=== PATIENT | male | born 1990 | race Caucasian/White ===

== ENCOUNTER 2016-10-04 22:39 | Inpatient (IN) | payer MEDICAID ==
--- NOTE | ~2016-10-04 | DS ---
Unit #: [id number] #: [id number] Patient: LUIS PATRICIO [id number] [facility] [address] [place] [address] [id number] MR#: [id number] NAME: LUIS PATRICIO ROOM: [facility] Age: 26 Sex: M Admission Date: 10/04/2016 : 1990 Discharge Date: 10/08/2016 Attending Physician: Maria Esther Clifton M.D. Primary Care Physician: Generic Doctor Not In System DISCHARGE SUMMARY IDENTIFYING DATA Mr. Patricio is a 26-year-old single white male, who was transferred to us from Emergency Psychiatric Services at [facility]. DISCHARGE DIAGNOSES Psychiatric: Major depressive disorder, recurrent, moderate, without psychotic features; cannabis abuse, mild. Medical: None. Stressors: Moderate psychosocial stressors. HISTORY OF PRESENT ILLNESS Please see initial psychiatric evaluation for details. PAST PSYCHIATRIC HISTORY Please see initial psychiatric evaluation for details. PAST MEDICAL HISTORY Please see initial psychiatric evaluation for details. HOSPITAL COURSE The [facility] and was oriented to the hospital environment. Routine p.r.n. medications were initiated, and he was started back on his home medications. Celexa 20 mg was started as an antidepressant and he was closely monitored. He was taking the medications regularly and was tolerating them fairly well and was able to show a decent and therapeutic response and was willing to continue treatment on an outpatient basis. DISCHARGE MEDICATIONS Celexa 20 mg a day for depression. DISCHARGE CONDITION Stable. PROGNOSIS Fair. Dictated by... Kristyn March/eliceo TD: 10/09/2016 00:40 Unit #: [id number] #: [id number] Patient: LUIS PATRICIO JOB #: [id number] DISCHARGE SUMMARY X Maria Esther Clifton MD X DISCHARGE SUMMARY
--- NOTE | ~2016-10-04 | HP ---
Unit #: [id number] #: [id number] Patient: LUIS CHAVEZ [id number] [place] [address] [id number] MR#: [id number] NAME: LUIS CHAVEZ ROOM: [facility] Age: 26 Sex: M Admission Date: 10/04/2016 : 1990 Attending Physician: Maria Esther Clifton M.D. Admitting Physician: Maria Esther Clifton M.D. Primary Care Physician: Generic Doctor Not In System HISTORY AND PHYSICAL HISTORY OF PRESENT ILLNESS The patient is a 26-year-old male admitted to [address] [place] [address] on 10/04/2016 for suicidal ideation. PAST MEDICAL HISTORY The patient denies. PAST SURGICAL HISTORY The patient denies. SOCIAL HISTORY The patient is unemployed. He drinks one-half pint of alcohol per day. Smokes one joint per day. FAMILY HISTORY Noncontributory. ALLERGIES No known drug allergies. CURRENT MEDICATIONS The patient is not on any home medications. REVIEW OF SYSTEMS CONSTITUTIONAL: No fever or chills. HEENT: Denies any sore throat, ear pain or runny nose. CARDIOVASCULAR: Denies chest pain, irregular heart rhythm or palpitations. CHEST: Denies shortness of breath or cough. No hemoptysis. GASTROINTESTINAL: Denies nausea, vomiting, diarrhea or chronic constipation. ENDOCRINE: Denies history of increased thirst or urination. No recent significant weight loss or gain. GENITOURINARY: Denies dysuria, frequency, or hematuria. SKIN: Denies any rashes. HEMATOLOGIC: Denies history of increased bleeding or bruising. MUSCULOSKELETAL: Denies any hot, swollen joints. No generalized muscle pain. NEUROLOGIC: Denies problems with vision or speech. No frequent, severe headaches. No numbness, tingling or weakness in any extremities. Denies loss of bladder or bowel control. PHYSICAL EXAMINATION GENERAL: The patient is awake, alert and oriented, in no acute distress. VITAL SIGNS: Temperature 98.0, heart rate 57, respiratory rate 16, blood Unit #: [id number] #: [id number] Patient: LUIS CHAVEZ pressure 98/53, height 5'6". WEIGHT: 130 pounds. SKIN: Warm and dry without rash or lesion. HEENT: Normocephalic. TMs not viewed. Oral and nasal passages clear. Conjunctivae clear. PERRLA. EOMs intact. NECK: Supple without lymphadenopathy or thyromegaly. HEART: Regular rate and rhythm without murmur. LUNGS: Clear. ABDOMEN: Soft, nontender. : Not done. EXTREMITIES: No evidence of cyanosis, clubbing or edema. Moves all without focal deficit. NEUROLOGICAL: Grossly within normal limits. Cranial Nerves: II: Visual bee are intact. III, IV AND : Extraocular movements are intact. Pupils are equal, round and reactive to light. V: Facial sensation is grossly normal. VII: Facial movements and expression are normal. VIII: Auditory acuity grossly intact. IX, X: Uvula is midline. Phonation is normal. XI: Patient shrugs shoulders and turns head normally. XII: Tongue protrudes in the midline. Sensory and Motor Function: Sensory and motor sensation is grossly normal. Motor: moves all extremities well. ASSESSMENT 1. Psychiatric admission. 2. Alcohol abuse. RECOMMENDATION 1. Psychiatric: Per psychiatrist. 2. Medical: No contraindications for participating in facility activities. MEDICAL PROGNOSIS Good. MEDICAL CONDITION Stable. Dictated by... Hilda Cobb TD: 10/06/2016 09:20 JOB #: [id number] HISTORY AND PHYSICAL X JANIA ESTEBAN APRN X HISTORY AND PHYSICAL
--- NOTE | ~2016-10-04 | PA ---
Unit #: [id number] #: [id number] Patient: LUIS PATRICIO [id number] [facility] [address] [place] [address] [id number] MR#: [id number] NAME: LUIS PATRICIO ROOM: P261 Age: 26 Sex: M Admission Date: 10/04/2016 : 1990 Date of Assessment: 10/05/2016 Attending Physician: Maria Esther Clifton M.D. Admitting Physician: Maria Esther Clifton M.D. Primary Care Physician: Generic Doctor Not In System PSYCHIATRIC ASSESSMENT DATE OF SERVICE 10/05/2016. IDENTIFYING DATA Mr. Patricio is a 26-year-old single white male, who was transferred to us from Emergency Psychiatric Services at [facility] where he was brought in by crisis intervention team of the [facility] [employer]. CHIEF COMPLAINT "I'm depressed, I'm not eating, I'm not sleeping." HISTORY OF PRESENT ILLNESS Mr. Patricio is a 26-year-old single white male, who was brought to the hospital by crisis intervention team called by the patient's mother due to concern for the patient's safety, and [facility] report stated that the patient made threats to harm himself and also reported that the patient states that he is depressed and no longer wants to live and reported that he will harm himself and was taken to the Emergency Room at [facility] where he was exhibiting significant depression and anxiety with blunted affect and minimal interaction and reports disturbed sleep and appetite, poor energy level, feelings of hopelessness and helplessness. He reports financial stressors and feeling that no one cares for him and refuses to present with any feature orientation programs and reports that he would not be safe if he went home and states that he wants to and will kill himself, and as such, a recommendation for inpatient level of care was made and the patient was medically cleared and then transferred to us. SUBSTANCE ABUSE HISTORY The patient reports smoking a joint of cannabis a day, but denies any other drug abuse. PAST PSYCHIATRIC HISTORY The patient has had a history of inpatient psychiatric hospitalization at [facility] and has been diagnosed and treated for mood disorder. Review of the medical records indicate that currently he is not active in any treatment program, is not seeing a psychiatrist, and is not taking any psychotropic medications. PAST MEDICAL HISTORY No acute or chronic medical illnesses. Unit #: [id number] #: [id number] Patient: LUIS PATRICIO ALLERGIES No known medication allergies. CURRENT MEDICATIONS None. PERSONAL AND SOCIAL HISTORY A 26-year-old white male, who reports that he is single, unemployed, and lives at home by himself and has poor social support system. MENTAL STATUS EXAMINATION Young white male, who was casually dressed with fair personal hygiene, appears to be in no acute distress or discomfort. He was awake and alert on interaction with intact orientation to time, place, and person. His mood was anxious and depressed with a congruent affect. His speech was slow and goal directed. He reports having suicidal ideation, but denies any homicidal ideations and also denies any auditory or visual hallucinations. His insight and judgment remain significantly impaired. DIAGNOSTIC IMPRESSION Psychiatric: Major depressive disorder, recurrent, moderate, without psychotic features and cannabis abuse, mild. Medical: None. Stressors: Moderate psychosocial stressors. TREATMENT PLAN 1. The patient has presented with a history of mood disorder and substance abuse and has been decompensating. We will recommend inpatient hospitalization for safety and stabilization. We will recommend starting him on antidepressant therapy. 2. Supportive therapy was provided to the patient. 3. Safe, structured, and nourishing environment will be provided. ESTIMATED LENGTH OF STAY 5 to 7 days. ABILITY TO HELP SELF Limited. WILLINGNESS TO HELP SELF The patient appears to be willing to help self. STRENGTHS 1. Communicative. 2. Cooperative. PROBLEMS 1. Chronic dysphoric symptoms. 2. Poor social support system. DISCHARGE CRITERIA This will be contingent upon the patient's ability to show resolution of his depression and anxiety and his ability to stay safe to himself, particularly after discharge from the hospital. Dictated by... Maria Esther Clifton M.D. Unit #: [id number] #: [id number] Patient: LUIS PATRICIO ANGELA/modl TD: 10/05/2016 14:28 JOB #: [id number] PSYCHIATRIC ASSESSMENT X Maria Esther Clifton MD PSYCHIATRIC ASSESSMENT
--- NOTE | ~2016-10-04 | PN ---
Unit #: [id number] #: [id number] Patient: LUIS CHAVEZ [id number] [facility] [address] [place] [address] [id number] MR#: [id number] NAME: LUIS CHAVEZ ROOM: [facility] Age: 26 Sex: M Admission Date: 10/04/2016 : 1990 Attending Physician: Maria Esther Clifton M.D. Admitting Physician: Maria Esther Clifton M.D. Primary Care Physician: Major Doctor Not In System [facility] PROGRESS NOTES DATE OF SERVICE: 10/06/2016 SUBJECTIVE Mr. Briggs is a 26-year-old white male with mood disorder, who was seen today and chart was reviewed and case was discussed with the staff. He has been anxious, withdrawn, and rather seclusive to himself. Meanwhile, he has been cooperative with treatment recommendation and has been taking the medications and tolerating them fairly well with no reported side effects. MENTAL STATUS EXAMINATION Young white male who was casually dressed with a fair personal hygiene and appears to be in no acute distress or discomfort. He was awake and alert on interaction with intact orientation. His mood was anxious with a congruent affect. He denies any suicidal or homicidal ideations. His insight and judgment remain slightly impaired. TREATMENT PLAN 1. We will continue him on his current medications and treatment protocol. We will monitor his response to the medications and make further adjustments as needed. 2. We will continue to follow up. Dictated by... Kristyn March/eliceo TD: 10/07/2016 05:13 JOB #: [id number] [facility] PROGRESS NOTES X Maria Esther Clifton MD PROGRESS NOTE
--- NOTE | ~2016-10-04 | PN ---
Unit #: [id number] #: [id number] Patient: LUIS PATRICIO [id number] [facility] [address] [place] [address] [id number] I MR#: [id number] NAME: LUIS PATRICIO ROOM: [facility] Age: 26 Sex: M Admission Date: 10/04/2016 : 1990 Attending Physician: Maria Esther Clifton M.D. Admitting Physician: Maria Esther Clifton M.D. Primary Care Physician: Generic Doctor Not In System [facility] PROGRESS NOTES DATE OF SERVICE: 10/07/2016 SUBJECTIVE Mr. Patricio is a 26-year-old white male, who was seen today and chart was reviewed and the case was discussed with the staff. He has been doing fairly well and has been showing improvement in depression and anxiety and has been cooperative with the treatment recommendations as he has been taking the medications and tolerating them fairly well. MENTAL STATUS EXAMINATION Young white male, who was casually dressed with fair personal hygiene, appears to be in no acute distress or discomfort. He was awake and alert on interaction with intact orientation. His mood was anxious with a congruent affect. He denies any suicidal or homicidal ideations. His insight and judgment remain slightly impaired. TREATMENT PLAN 1. We will continue him on his current medications and treatment protocol. We will monitor his response to the medications and make further adjustments as needed. 2. We will continue to follow up. Dictated by... Kristyn March/soumyal TD: 10/08/2016 15:31 JOB #: [id number] [facility] PROGRESS NOTES X Maria Esther Clifton MD PROGRESS NOTE
[2016-10-05 12:30] LABS: URINE APPEARANCE CLOUDY; URINE BILIRUBIN NEG (NEG); URINE BLOOD NEG (NEG); URINE COLOR YELLOW; URINE GLUCOSE NEG (NEG); URINE KETONE NEG (NEG); URINE LEUKOCYTE ESTERASE NEG (NEG); URINE NITRATE NEG (NEG); URINE PROTEIN NEG (NEG); URINE SPECIFIC GRAVITY 1.022 (1.003-1.035); URINE UROBILINOGEN 0.2 MG/DL (NEG)
[2016-10-06 09:58] LABS: THYROID STIMULATING HORMONE 0.92 uIU/ml (0.34-5.60)
[2016-10-06 10:07] LABS: FREE THYROXIN (T4) 0.81 ng/dL (0.58-1.64)
== END 2016-10-08 09:50 | disposition home or self-care (01) | DRG 885 ==
LOC: P2L 22:39
PROVIDERS: Psychiatry & Neurology Psychiatry
DX: F33.1 Major depressive disorder, recurrent, moderate (principal); F41.9 Anxiety disorder, unspecified; F12.10 Cannabis abuse, uncomplicated; Z56.0 Unemployment, unspecified; F10.10 Alcohol abuse, uncomplicated
CPT/HCPCS: 81003; 84439; 84443